=== PATIENT | male | born 1965 | race Caucasian/White ===

== ENCOUNTER → 2017-05-26 | Outpatient (CLI) | payer BC | END | disposition home or self-care (01) | LOC: GMAM 10:23 | PROVIDERS: ATTEND Family Medicine | DX: Z12.5 Encounter for screening for malignant neoplasm of prostate (principal); E29.9 Testicular dysfunction, unspecified ==

== ENCOUNTER → 2017-06-02 | Outpatient (CLI) | payer BC ==
--- NOTE | 2017-06-02 15:13 | US ---
EXAM DESCRIPTION: Soft Tissue,Abdomen CLINICAL HISTORY: VENTRAL HERNIA. "[place] lump above my belly button for nine months. COMPARISON: None Available. TECHNIQUE: Transcutaneous scanning: Two-dimensional and Doppler modes. FINDINGS: Heterogeneous tissue superior to the umbilicus measuring 2.2 cm x 1.7 cm. Nonvascular. No fluid content. No peristalsis. Upper lateral abdomen palpable mass measures 1.5 x 1.1 x 0.57 cm and is similar to the surrounding adipose tissue. IMPRESSION: 1. Supraumbilical tissue is not abscess or fluid. Not bowel. Possible scar tissue. 2. Lipoma in the upper lateral abdomen. Side was not specified. Electronically signed by: David Etienne MD 06/02/2017 3:12 PM CDT
== END | disposition home or self-care (01) ==
LOC: US 08:08
PROVIDERS: ATTEND Family Medicine
DX: K43.9 Ventral hernia without obstruction or gangrene (principal)

== ENCOUNTER 2017-06-26 05:48 | Day surgery (SDC) | payer BC ==
[2017-06-26] MEDS ORDERED: LACTATED RINGERS 1,000 ML ONE (06:42)
[2017-06-26] MEDS ORDERED: levoFLOXacin 500MG IV 100 ML IVPB ONE (06:43)
[2017-06-26] MEDS ORDERED: BUPIVACAINE 0.25% W/EPI 50 ML VIAL INJ ONE (08:36)
[2017-06-26] MEDS ORDERED: MIDAZOLAM INJ 5 MG/5 ML VIAL ONE (08:45)
[2017-06-26] MEDS ORDERED: fentaNYL CITRATE INJ 50 MCG/ML AMP ONE (08:46)
[2017-06-26] MEDS ORDERED: ROCURONIUM BROMIDE 10 MG/ML VIAL ONE (09:02)
[2017-06-26] MEDS ORDERED: SUGAMMADEX SODIUM 200 MG/2 ML VIAL IV ONE (09:56)
--- NOTE | 2017-06-26 10:24 | OP ---
DATE OF PROCEDURE: 06/26/17 PREOPERATIVE DIAGNOSIS: 1. Incarcerated umbilical hernia. 2. Tender subcutaneous mas,s right anterior chest wall. POSTOPERATIVE DIAGNOSIS: 1. Incarcerated umbilical hernia. 2. Tender subcutaneous mas,s right anterior chest wall, consistent with a lipoma. PROCEDURE: 1. Repair of incarcerated umbilical hernia. 2. Excision of subcutaneous mass, right anterior chest wall. SURGEON: Emile Lindo MD. SENIOR QA ANALYST: None. ANESTHESIA: General endotracheal anesthesia and local infiltration of 0.25% Marcaine with epinephrine. INDICATION: The patient is a 51-year-old male who has noticed a mass at his umbilicus for some time and it has recently become tender. He also has a mass on his anterior right lower chest wall which is mobile, but tender to gentle palpation. The patient was brought to the Surgical Suite today for hernia repair and excision of the mass after the risks, benefits and alternatives to the procedure were discussed and accepted. FINDINGS: The subcutaneous mass was 16 mm in greatest diameter and consistent with a lipoma. The umbilical hernia had incarcerated omentum within it. The defect was approximately 7 mm in greatest diameter. PROCEDURE: After adequate general endotracheal anesthesia was obtained, the patient was prepped and draped in the usual sterile manner. At this point, a surgical time-out was taken. The skin over the previously marked right anterior chest wall mass was infiltrated with local anesthesia. A small incision was made with a 15 blade and dissection was carried down through the skin into the subcutaneous tissue using electrocautery. The mass was identified. It was bluntly dissected free other than small tissues which were dissected with electrocautery. It was passed off the table and measured at 16 mm. The wound was irrigated and hemostasis was obtained with electrocautery. The skin edges were then reapproximated with a skin stapler. A towel was placed over this incision. The infraumbilical area was then infiltrates with local anesthesia. A curvilinear incision was made with a knife and dissection was carried down through the skin and subcutaneous tissue to the midline fascia using electrocautery. The hernia was identified and dissected free circumferentially using electrocautery and blunt dissection. The hernia was then incised at its neck at the level of the abdominal wall fascia. Using blunt dissection, the omentum was then dissected from the hernia and reduced below the floor of the canal. The remaining neck of the hernia was incised using electrocautery. At this point, the hernia was closed with a single [id number] suture of #1 PDS. This was then tightened and tied. Hemostasis was noted to be adequate. Another tiny defect of approximately 1 mm was identified approximately 1 cm above this repair and this was closed with a 2-0 Prolene [id number] suture. When this was done, the wound was irrigated with saline. Hemostasis was noted to be adequate. At this point, a 6 by 5 oval shaped Surgimesh patch was introduced, placed over the defect, and sutured in placed with interrupted 2 -0 Prolene and 2-0 Vicryl sutures. When this was done, again, the wound was irrigated with saline. Hemostasis was noted to be adequate. The umbilicus was sutured back to the abdominal wall with a single [id number] suture of 2-0 Prolene. Subcutaneous tissues were reapproximated with interrupted 3-0 Vicryl sutures and the skin edges were approximated with a skin stapler. Sterile pressure dressings were applied. Abdominal binder was applied. The patient was awakened and taken to the Recovery Room in good and stable condition. Estimated blood loss was less than 10 mL. All sponge, needle and instrument counts were correct. #[id number] [facility]
[2017-06-26 10:42] VITALS: BP 106/62; TEMP 98.6; O2SAT 97
[2017-06-26] MEDS ORDERED: HYDROcodone 5MG/APAP 325MG 1 EA TAB ONE (11:17)
[2017-06-26] MEDS ORDERED: LIDOCAINE 1% 10 ML VIAL INJ ONE (12:00)
[2017-06-26] MEDS ORDERED: PROPOFOL 200 MG/20 ML VIAL IV ONE (12:00)
[2017-06-26] MEDS ORDERED: DEXAMETHASONE INJ 10 MG/ML VIAL IV ONE (12:00)
[2017-06-26] MEDS ORDERED: raNITIdine HCL INJ 25 MG/ML VIAL IV ONE (12:00)
== END 2017-06-26 11:35 | disposition home or self-care (01) ==
LOC: AMB 05:48
PROVIDERS: ATTEND Surgery
DX: K42.0 Umbilical hernia with obstruction, without gangrene (principal); R22.2 Localized swelling, mass and lump, trunk; E03.9 Hypothyroidism, unspecified; G47.419 Narcolepsy without cataplexy; G40.409 Other generalized epilepsy and epileptic syndromes, not intractable, without status epilepticus; F17.290 Nicotine dependence, other tobacco product, uncomplicated; Z88.8 Allergy status to other drugs, medicaments and biological substances; Z79.899 Other long term (current) drug therapy
CPT/HCPCS: 00830; 11402; 36415; 49587; 80048; 81001; 85025; C1781; J1100; J1956; J2250; J2780; J3010; J3490; J7120

== ENCOUNTER → 2017-06-26 | Outpatient (CLI) | payer BC | END | disposition home or self-care (01) | LOC: GMAM 08:16 | PROVIDERS: ATTEND Family Medicine | DX: R80.9 Proteinuria, unspecified (principal) ==